=== PATIENT | female | born 1970 | race Two or more races ===

== ENCOUNTER → 2016-09-19 | Outpatient (CLI) | payer OTHER ==
--- NOTE | ~2016-09-19 | MY11 ---
[facility] A Service of [facility] RADIOLOGY TEXT RESULTS PATIENT: TREMAYNE CABELLO LOCATION: [facility] : [birth year] UNIT #: [id number] AGE: [address]: FORTUNATO ROMEO APRN SEX: F ORDER DR: [id number] [facility] [address] [place], [place] [address] [id number] O MR#: [id number] Acc #: [id number] NAME: TREMAYNE CABELLO : 1970 SEX: F STUDY DATE/TIME: 09/19/2016 10:12 UNIT: [facility] ROOM: STUDY DESCRIPTION: MY Mammogram Screening Dig Samir Attending Physician: Oliver Romeo Aprn Referring Physician: Oliver Romeo Aprn Ordering Physician: Oliver Romeo Aprn Primary Care Physician: Marcelino Godfrey M.D. MEDICAL IMAGING REPORT This report is preliminary unless electronic signature is present EXAM Bilateral digital screening mammogram with CAD, 09/19/2016. INDICATION 46-year-old female for routine screening. No reported problems. No personal or family history of breast cancer. No surgeries. TECHNIQUE CC and MLO views of the breasts were obtained and reviewed with an FDA-approved CAD device. COMPARISON 02/09/2014 FINDINGS Breast parenchyma is composed of scattered fibroglandular densities. The pattern is symmetric and unchanged. There is no new dominant nodule, mass, or suspicious cluster of microcalcifications. Faint benign calcifications are present in the right breast and stable. IMPRESSION Negative screening mammogram. 1 year followup recommended. Patients over the age of 40 are entered into a reminder system with target due date for the next mammogram. A result letter will also be sent to the patient. BIRADS: 1 Negative Dictated by... Vahe Szymanski M.D. [facility] A Service of [facility] RADIOLOGY TEXT RESULTS PATIENT: TREMAYNE CABELLO LOCATION: [facility] : 68 UNIT #: [id number] AGE: [address]: FORTUNATO ROMEO APRN SEX: F ORDER DR: THIS IS AN ELECTRONICALLY VERIFIED REPORT Vahe Szymanski M.D. at 09/19/2016 5:26 PM BRUNA/ozzie TD: 09/19/2016 15:30 JOB #: [id number] MEDICAL IMAGING REPORT Page 1 of 1 COPY
== END | disposition home or self-care (01) ==
LOC: CWCC 09:57
DX: Z12.31 Encounter for screening mammogram for malignant neoplasm of breast (principal)
CPT/HCPCS: G0202